=== PATIENT | male | born 1980 | race African-American/Black ===

== ENCOUNTER 2024-05-14 06:11 | Observation (INO) | payer BC, SELFPAY ==
[2024-05-14 00:54] VITALS: BP 127/90
--- NOTE | 2024-05-14 02:12 | ED.GENMED ---
History of Present Illness
General
Chief Complaint: Foreign Body Removal
Source: patient
Exam Limitations: none
Time Seen by Provider: 05/14/24 01:52
History of Present Illness
History of Present Illness:
43-year-old male presents with severe rectal pain and abdominal pain. He believes a piece of a vibrator still stuck in his rectum. He was able to get the vibrator out but the And the battery did not come out. Of note, patient has an ostomy for
history of diverticulitis. He notes pain around his stoma as well.
Past History
Past History
ED Past Medical History: Other (Pulmonary embolism)
ED Past Surgical History: Appendectomy and Other (Ileostomy)
Social History
Tobacco: Non-smoker
Alcohol: Occasional
Drug: None
Living: with family
Employment: Employed
Phy Exam
Physical Exam
Physical Exam:
General: Uncomfortable appearing male no acute respiratory distress
HEENT: Normocephalic atraumatic
Heart: Regular rate and rhythm no murmurs
Lungs: Clear no wheeze
Rectal exam: There is no palpable foreign body even when bearing down. Rectal exam was very painful for the patient
Abdomen: Tender to the lower abdomen particularly around the stoma no bleeding in the stoma
Course
Orders/Labs/Results
Orders:
Orders
05/14/24 00:59
Abdomen Xray - 1 View [CR Abdomen - 1 View] Urgent
Comment:
Reason For Exam: possible foreign body
05/14/24 02:10
CT Abd/pelvis W Iv Cont Urgent
Comment:
Reason For Exam: rectal foreign body, abdominal pain
HYDROmorphone [Dilaudid] 0.5 mg IV NOW STA
05/14/24 02:28
Complete Blood Count/With Diff Urgent
05/14/24 03:38
Basic Metabolic Panel Urgent
Comment: NO K
05/14/24 05:10
0.9% Sodium Chloride 1000 ml [Nss] 1,000 ml IV BOLUS
HYDROmorphone [Dilaudid] 1 mg IV NOW STA
05/14/24 05:37
Admit/Transfer Patient As Directed
Co-Sign Provider:
Level of Care: Observation services
Assign to:: Medical/Surgical
Physician / Group: Colorectal Surgery
Diagnosis: Rectal foreign body
Reason for Hospitalization: Rectal foreign body - evaluate and treat
ELOS- Estimated Length of Stay in days: 1
05/14/24 05:38
PRN Pain Medication Management As Directed
May give lesser potent ordered pain med per pt: Yes
preference::
Protocol:: Medication orders for pain may be administered in a
manner that supports deferring to patient preference
when the pt is:
- Requesting an ordered lesser potent pain medication.
Least to most potent pain medications are defined
as: acetaminophen < NSAID < tramadol < opioids
(morphine, oxycodone, hydromorphone).
- Requesting a lesser dose of the same medication IF
ORDERED.
- Requesting a less intrusive route of administration
if both routes are prescribed by the provider (PO <
IV).
05/14/24 05:48
Code Status As Directed
Resuscitation Status: Full Code
Abnormal Lab Results
05/14/24 05/14/24
02:28 03:38
WBC 4.4 L 10^3/uL
(4.8-10.8)
Hgb 12.8 L g/dL
(13.0-18.0)
MCH 26.8 L pg
(27.0-31.0)
MCHC 32.4 L g/dL
(33.0-37.0)
RDW 16.4 H %
(11.5-14.5)
MPV 10.6 H fL
(7.4-10.4)
Monocytes % 10.6 H %
(1.7-9.3)
Chloride 108 H mmol/L
(98-107)
05/14/24 02:28
05/14/24 03:38
Vital Signs
Initial and Last Documented VS:
Initial Vital Signs
Temp Pulse Resp BP Pulse Ox
98.2 F 137 18 127/90 99
05/14/24 00:54 05/14/24 00:54 05/14/24 00:54 05/14/24 00:54 05/14/24 00:54
Last Documented Vital Signs
Temp Pulse Resp BP Pulse Ox
98.2 F 78 18 148/78 98
05/14/24 00:54 05/14/24 09:50 05/14/24 09:50 05/14/24 09:50 05/14/24 09:50
MDM/Problems Addressed
Differential Diagnosis Includes:
Patient concern for potential retained foreign body in rectum. Also has significant pain to the abdomen. X-ray of the abdomen ordered through triage demonstrates what looks like a AA battery in the rectum. Unfortunately nothing was able to be
palpated on the digital rectal exam. Secondary to his level of pain will order CT scan to evaluate for any perforation or additional retained foreign bodies. Labs pending
*Critical Care Note
Total Time (30-74mins, 75-104mins- exclusive of procedures): Not Applicable
Update Note
Update Note:
Case signed out to ED attending pending CT. He was admitted after CT for further evaluation.
ED Attending Note
-
Portions of this chart may have been created with voice recognition software.� Occasional wrong word or��sound alike� substitutions may have occurred due to the inherent limitations of voice recognition software.
Discharge Plan
Departure
Patient Disposition: Admit
Date of Disposition: 05/14/24
Time of Disposition: 05:12
Admit to: Med/Surg
Admit to doctor: Ashvin
Presentation/result/management discussed w/ accepting MD/DO: surgery
Condition: Fair
Discharge Problem:
Rectal foreign body
Interventions
Interventions:
*Risk Screen - Suicide Last Done: 05/14/24 00:54
*General Assessment Last Done: 05/14/24 00:54
*Neglect/Abuse Screening Last Done: 05/14/24 00:54
ED- Fall Risk Assessment Last Done: 05/14/24 10:06
*ED COVID-19 Vaccine History Last Done: 05/14/24 00:54
*Nursing Disposition Last Done: 05/14/24 10:06
Discharge Date and Time
Discharge Date/Time: 05/14/24 10:00
[2024-05-14 02:35] LABS: % Basophils 0.7 % (0-2); % Eosinophils 1.6 % (0-6); % Immature Granulocytes 0.2 % (0-0.5); % Lymphocytes 43.3 % (20.5-51.1); % Monocytes 10.6 % (1.7-9.3); % Neutrophils 43.6 % (42.2-75.2); Absolute Eosinophils 0.1 10^3/uL (0-0.7); Absolute Lymphocytes 1.9 10^3/uL (1.2-3.4); Absolute Monocytes 0.5 10^3/uL (0.1-0.6); Absolute Neutrophils 1.9 10^3/uL (1.4-6.5); Hematocrit 39.5 % (39.0-52.0); Hemoglobin 12.8 g/dL (13.0-18.0); Mean Corp Hgb Conc. 32.4 g/dL (33.0-37.0); Mean Corpuscular Hgb 26.8 pg (27.0-31.0); Mean Corpuscular Volume 82.6 fL (80.0-94.0); Mean Platelet Volume 10.6 fL (7.4-10.4); Nucleated Red Blood Cells % 0 % (-); Platelet Count 182 10^3/uL (130-400); Red Blood Cell Count 4.78 10^6/uL (4.70-6.10); Red Cell Dist. Width 16.4 % (11.5-14.5); White Blood Cell Count 4.4 10^3/uL (4.8-10.8)
[2024-05-14] MEDS: DILAUDID 0.5 MG IV (02:43)
[2024-05-14 04:21] LABS: Blood Urea Nitrogen 16 mg/dl (9-20); Calcium 9.5 mg/dl (8.4-10.2); Carbon Dioxide 22 mmol/L (22-30); Chloride 108 mmol/L (98-107); Glucose 94 mg/dl (70-99); Sodium 143 mmol/L (135-145); eGFR > 60.00
[2024-05-14 04:30] VITALS: BP 162/109
[2024-05-14] MEDS: DILAUDID 1 MG IV (05:18)
[2024-05-14] MEDS: NSS 1000 IV (05:19)
[2024-05-14 05:21] VITALS: BMI 27.2
--- NOTE | 2024-05-14 05:55 | HPS.HSE ---
Addendum entered and electronically signed by Miguelangel Lock MD 05/15/24 07:17:
I saw and examined the patient.
The Director Service's note was reviewed and I agree with the note.
Comment: Late entry from 05/14/24
Pt inserted object into rectum earkier today and retrieved it without battery, he is in significant lower abd pain. On exam, lower abd (ttp moderate), denies f/c/n/v. Plan to consult GI for attempt at endoscopic retrieval. If perforation or
inability to retrieve --> OR for ex-lap
Original Note:
Family Physician
-
Family Physician: * NONE
Chief Complaint
-
Rectal pain/foreign body removal
History of Present Illness
Patient is a 43 year old male, with PMHx significant for diverticulitis w/recent abdominal surgery approximately 4 months ago w/ostomy, Pulmonary embolism (was taking Xarelto, stopped taking 2 weeks ago), Factor V Leiden deficiency presents to the
emergency department with severe rectal pain and abdominal pain. Patient believes a piece of a vibrator still stuck in his rectum. He was able to get the vibrator out but the battery did not come out. Of note, patient has an ostomy for history of
diverticulitis. He notes pain at his rectum and around his stoma as well, rates pain at 6 out of 10. Review of chart shows patient with hx of rectal foreign body requiring removal in the OR here 08/2020 and 04/2021.
In the emergency department, Preliminary reads for Abd Xray showed foreign body, report pending. Preliminary read of CT Abd/Pelvis w/IV contrast also showed foreign body. Patient received IV fluids, pain medication, consulted Colorectal surgery,
Ashvin, who is admitting the patient to their service.
Medical History
Past Medical History
Past Medical History: Reports Other (Factor V Leiden, B/L Pulmonary embolism, Diverticulitis)
Past Surgical History: Reports Appendectomy and Bowel Resection (w/ileostomy)
Social History
Tobacco: Non-smoker
Alcohol: Occasional
Drug: None
Personal: Single
Living: With Family
Employment: Employed
Family History
Family History: Not pertinent
Allergies / Home Medications
Allergies reflects when Allergies were last updated in [facility].
Home Medications with original date entered in [facility]
Allergy/Medication List:
Patient Allergies
Allergy/AdvReac Type Severity Reaction Status Date / Time
No Known Allergies Allergy Verified 05/02/21 04:39
Home Medications
�Medication �Instructions �Recorded
omeprazole magnesium 20 mg 20 mg PO BID Gastrointestinal issue 09/02/20
tablet,delayed release (Prilosec
OTC)
Review of Systems
-
History Source: Patient
A 12 point ROS was completed and negative except as noted: Yes
Constitutional: Reports No Symptoms
EENT: Reports No Symptoms
Respiratory: Reports No Symptoms
Cardiac: Reports No Symptoms
Abdomen/GI: Reports Abdominal Pain and Pain (Rectal pain)
: Reports No Symptoms
Musculoskeletal: Reports No Symptoms
Skin: Reports No Symptoms
Neurological: Reports No Symptoms
Endocrine: Reports No Symptoms
Hematologic/Lymphatic: Reports No Symptoms
Psych: Reports No Symptoms
Physical Exam
Vital Signs
Vital Signs
Temp Pulse Resp BP Pulse Ox
98.2 F 94 18 162/109 100
05/14/24 00:54 05/14/24 04:30 05/14/24 04:30 05/14/24 04:30 05/14/24 04:30
Physical Exam
General: Appears in Distress
HEENT: NormoCephalic and Moist mucous membranes
Respiratory: Clear
Cardiac: S1/S2 and Regular Rhythm
GI: Soft, Tender and Ostomy
Rectal: Deferred by Provider (Very Painful, patient declined, will be evaluated by Surgery)
Musculoskeletal: No Edema
Neuro: AO x 3
Laboratory Results
-
05/14/24 02:28
05/14/24 03:38
Laboratory Results
Total Bilirubin Cancelled 05/14/24 03:38
AST Cancelled 05/14/24 03:38
ALT Cancelled 05/14/24 03:38
Alkaline Phosphatase Cancelled 05/14/24 03:38
Data Reviewed
-
Diagnostic Radiology: Image Personally Visualized and interpreted and Discussed with Physician
CT Scan: Image Personally Visualized and interpreted and Discussed with Physician
Lab Data: Labs Reviewed by me and Discussed with Physician
Impression/Plan
-
IMPRESSION:
Patient is a 43 year old male, with PMHx significant for diverticulitis w/recent abdominal surgery approximately 4 months ago w/ostomy, Pulmonary embolism (was taking Xarelto, stopped taking 2 weeks ago), Factor V Leiden deficiency presents to the
emergency department with severe rectal pain and abdominal pain.
PLAN:
Foreign Body Removal
-Admitted to Colorectal Surgery, Dr. Lock
-Plan for OR in am
-NPO
-IV fluids, pain medication, antiemetics
-EKG Labs: PT/INR, PTT
GERD
-Continue home medications.
DVT Prophylaxis: SCDs/Lucio, Lovenox (Post procedure),
Code status: Full code
[2024-05-14 06:00] VITALS: BP 158/88
--- NOTE | 2024-05-14 09:10 | CON.GI ---
Consultation
-
Date/Time Consultation Requested: 05/14/24
Date/Time Consultation Performed: 05/14/24
Requesting Provider:
Performing Provider: Caesar
Reason for Consultation: FB rectum
Medical History
Chief Complaint / HPI
Chief Complaint: rectal pain with FB
History of Present Illness:
This is a 43-year-old male with past medical history of diverticulitis w/recent abdominal surgery approximately 4 months ago w/ostomy, Pulmonary embolism (was taking Xarelto, stopped taking 2 weeks ago), Factor V Leiden deficiency, GERD , history of
foreign body in rectum in 2020 X 2 after using vibrator the battery and piece of vibrator was stuck which was removed with exam under anesthesia in the OR by Dr. Jacobs and Dr. Meredith. He also recently had complicated diverticulitis with severe
constipation and obstipation with no bowel movement for about a week following which he presented to the [facility] where his parents live in [place] and had underwent an emergent surgery and he is unsure if he had resection but has
a colostomy and was told to get reversal in 3 to 6 months and the surgery was done about 4 to 5 months ago. He says that yesterday he used a vibrator and when he tried to remove the vibrator he says that he could not see if the cap/tip came out and
also the battery remained in the rectum and he started to have rectal pain and also had an episode of rectal bleeding at home and came to the emergency room. He still has rectal discomfort and also complains of pain around the ostomy. No fevers or
chills no nausea or vomiting. He says he had a colonoscopy about a year ago and he does not remember the name of the blood or blood bank technician but he says was normal he had also an endoscopy and a colonoscopy at the age of 19 which was normal he does have
a history of reflux and uses omeprazole daily.
Past Medical History
Past Medical History: Other (diverticulitis s/p resection with colostomy, Pulmonary embolism (was taking Xarelto, stopped taking 2 weeks ago), Factor V Leiden deficiency, GERD,FB in rectum X 2 in 2020 )
Past Surgical History: Other (Appendectomy, surgery for complicated diverticulitis with colostomy about 4 to 5 months ago)
Social History
Tobacco: Non-Smoker
Alcohol: Occasional
Drug: None
Employment: Employed
Family History
Family History: Other (Grandfather had colon cancer)
Allergies / Home Medications
Allergy/AdvReac Type Severity Reaction Status Date / Time
No Known Allergies Allergy Verified 05/02/21 04:39
�Medication �Instructions �Recorded
omeprazole magnesium 20 mg 20 mg PO BID Gastrointestinal issue 09/02/20
tablet,delayed release (Prilosec
OTC)
Review of Systems
-
All other systems: A 12 pt ROS was Negative except as stated above in HPI
Vital Signs
Temp Pulse Resp BP Pulse Ox
98.2 F 89 16 158/88 98
05/14/24 00:54 05/14/24 06:00 05/14/24 06:00 05/14/24 06:00 05/14/24 06:00
Physical Exam
Exam
General: Other (Mild distress secondary to rectal pain)
HEENT: Normocephalic
Respiratory: Clear
Cardiac: S1/S2
GI: Soft, Non Tender (Mild tenderness around the colostomy), Non Distended and Normal Bowel Sounds
Musculoskeletal: No Clubbing
Skin: Warm
Neuro: Awake, Alert and Oriented
Psych: Calm
Results
WBC 4.4 10^3/uL (4.8-10.8) L 05/14/24 02:28
Hgb 12.8 g/dL (13.0-18.0) L 05/14/24 02:28
Hct 39.5 % (39.0-52.0) 05/14/24 02:28
MCV 82.6 fL (80.0-94.0) 05/14/24 02:28
Plt Count 182 10^3/uL (130-400) 05/14/24 02:28
Absolute Neuts (auto) 1.9 10^3/uL (1.4-6.5) 05/14/24 02:28
Sodium 143 mmol/L (135-145) 05/14/24 03:38
Potassium mmol/L (3.5-5.1) 05/14/24 03:38
Chloride 108 mmol/L (98-107) H 05/14/24 03:38
Carbon Dioxide 22 mmol/L (22-30) 05/14/24 03:38
BUN 16 mg/dl (9-20) 05/14/24 03:38
Creatinine 1.1 mg/dL (0.7-1.3) 05/14/24 03:38
Calcium 9.5 mg/dl (8.4-10.2) 05/14/24 03:38
Total Bilirubin Cancelled 05/14/24 03:38
AST Cancelled 05/14/24 03:38
ALT Cancelled 05/14/24 03:38
Alkaline Phosphatase Cancelled 05/14/24 03:38
Diagnostic Image Results:
Prior GI Procedures:
EGD: over 20 years ago
Colonoscopy: 2022 normal per patient
Assessment / Plan
-
1.Foreign body with retained battery from the vibrator in the rectum unclear if a piece of the vibrator is also retained will schedule him for an emergent sigmoidoscopy he does have rectal pain and had rectal bleeding prior to coming into the ER no
further bleeding. Hemoglobin stable at 12.[address] Lock
2. history of GERD doing well on omeprazole daily
3. History of PE was on Xarelto unsure why he discontinued it 2 weeks ago will defer to primary team, should be able to restart after the procedure
Data Reviewed
-
Radiology: Image Personally Visualized and interpreted
CT Scan: Image Personally Visualized and interpreted
-
-
Thank you for consultation and allowing me to participate in the patient's care. Please call the juvenile detention officer GI physician during the after hours with any questions or concerns.
[2024-05-14 09:50] VITALS: BP 148/78
--- NOTE | 2024-05-14 12:48 | W.PN.UPDATE ---
Update Note
Progress Note Update
43M with retained rectal foreign body (AA battery). Similar presentations in the past. Known hx of B/L PE but noncompliant with A/C. Mod-sev lower ab pain on presentation, soft belly, mod ttp to BLQ without r/r/g. AFVSS. Labs essentially
unremarkable. CT demonstrates the foreign body in the rectum without free air or pneumatosis. Plan for GI to attempt endoscopic retrieval. Advised pt to avoid batteries in the future and advised him to reconsider A/C in light of the PE hx. Since the
encounter GI has successfully retrieved the battery, I reviewed the images together with the endoscopist. Superficial ulceration noted but no perforation or necrosis. Pt will be cleared for DC home later today vs tomorrow bending pain control.
Full consult note to follow.
--- NOTE | 2024-05-14 14:24 | CM ---
CM attempt to retrieve patient's obs letter. Unable to. Patient still in procedural area.
--- NOTE | 2024-05-14 14:59 | W.DCSUMMARY ---
Documented by User: [email or web address] Nieves 05/14/24 15:09
Discharge Summary
Discharge Data
Date of Admission: 05/14/24
Date of Discharge: 05/14/24
-
Pending Results: No
Hospital Course
43 yo male presenting with history of diverticulitis with recent surgery with colostomy creation approximately 4 months ago in [place] as well as a history of remote PE and Factor V Leiden for which he was taking Xarelto until about 2 months ago when he
discontinued use on his own accord who presented with a retained foreign body in the rectum after using a vibrator. A battery was noted in the distal rectum on imaging. He had noted pain and significant discomfort and was taken for an emergent
sigmoidoscopy with gastroenterology with successful removal of the object. He tolerated the procedure well with resolution of pain. He was discharged to home with instructions to follow up with his primary care doctor in [place] to discuss
resuming Xarelto given his coagulopathic history.
Discharge Plan
-
Patient Disposition: Home (Routine Discharge)
Discharge Diagnosis/Procedures: Retained rectal foreign body which was removed with sigmoidoscopy
Condition: Good
Diet: As tolerated and Regular
Activity: No restrictions
Driving Restrictions: No driving for 24 hours
Bathing Restrictions: OK to Shower
Activity Restrictions/Additional Instructions:
Please call your primary care provider for follow up.
Referrals:
Miguelangel Lock MD [Active] - (call if pain returns/persists to rectal area)
NONE,* [Family Provider] -
Additional Discharge Medication Instructions: Please follow up with your primary care doctor. We recommend you resume your anticoagulation at the prior dosage given your clotting history. Ok to resume this tomorrow.
Prescriptions:
Continued
omeprazole magnesium [Prilosec OTC] 20 MG tablet,delayed release (DR/EC)
20 mg PO BID
Discharge Orders:
Discharge Patient (As Directed); Ordered 05/14/24
Ordered By: Laurie Slaughter
Discharge Date and Time
Discharge Date/Time: 05/14/24 12:30
Print Language: LEBANESE

Documented by User: Miguelangel Lock MD 05/15/24 07:17
Discharge Summary
Discharge Data
Date of Admission: 05/14/24
Date of Discharge: 05/15/24
Discharge Plan
-
Patient Disposition: Home (Routine Discharge)
Discharge Diagnosis/Procedures: Retained rectal foreign body which was removed with sigmoidoscopy
Condition: Good
Diet: As tolerated and Regular
Activity: No restrictions
Driving Restrictions: No driving for 24 hours
Bathing Restrictions: OK to Shower
Activity Restrictions/Additional Instructions:
Please call your primary care provider for follow up.
Referrals:
Miguelangel Lock MD [Active] - (call if pain returns/persists to rectal area)
NONE,* [Family Provider] -
Additional Discharge Medication Instructions: Please follow up with your primary care doctor. We recommend you resume your anticoagulation at the prior dosage given your clotting history. Ok to resume this tomorrow.
Prescriptions:
Continued
omeprazole magnesium [Prilosec OTC] 20 MG tablet,delayed release (DR/EC)
20 mg PO BID
Discharge Orders:
Discharge Patient (As Directed); Ordered 05/14/24
Ordered By: Laurie Slaughter
Discharge Date and Time
Discharge Date/Time: 05/14/24 12:30
Print Language: LEBANESE
== END 2024-05-14 12:30 | disposition home or self-care (01) ==
LOC: ED 06:11
PROVIDERS: Physician Assistant; ADMITTING PHYSICIAN Surgery; EMERGENCY PHYSICIAN Emergency Medicine; OTHER PHYSICIAN Internal Medicine Gastroenterology
DX: T18.5XXA Foreign body in anus and rectum, initial encounter (principal); R10.9 Unspecified abdominal pain; K62.5 Hemorrhage of anus and rectum; D68.51 Activated protein C resistance; K62.89 Other specified diseases of anus and rectum; K21.9 Gastro-esophageal reflux disease without esophagitis; R91.1 Solitary pulmonary nodule; W44.8XXA Other foreign body entering into or through a natural orifice, initial encounter; Y93.89 Activity, other specified; Y92.9 Unspecified place or not applicable; Z90.49 Acquired absence of other specified parts of digestive tract; Z86.711 Personal history of pulmonary embolism; Z93.3 Colostomy status; Z79.01 Long term (current) use of anticoagulants; Z80.0 Family history of malignant neoplasm of digestive organs
CPT/HCPCS: 45330; 74018; 74177; 80048; 85025; 96361; 96374; 96376; 99285; G0378; Q9967